=== PATIENT | male | born 1980 | race Hispanic/Latino ===

== ENCOUNTER 2021-03-01 11:05 | Emergency (ER) | payer SELFPAY ==
[2021-03-01 11:31] VITALS: BP 141/79
--- NOTE | 2021-03-01 11:35 | Emergency Department Report ---
ED General Adult HPI - General Chief complaint: Back Pain/Injury Stated complaint: NERVE PAIN IN UPPER BACK Time Seen by Provider: 03/01/21 11:32 Source: patient Mode of arrival: Ambulatory Limitations: No Limitations - History of Present Illness Initial comments: 40-year-old male patient presents with complaints of sudden onset of mid thoracic back pain with numbness on the left portion starting yesterday. He states Aleve is not helping with his symptoms. He rates his pain as a 8/10 in severity and denies any recent injuries or heavy lifting. No prior history of back injuries per patient. He also denies any chest pain, shortness of breath, cough, loss of bladder/bowel control, or difficulty with ambulation. - Related Data Previous Rx's Medication Instructions Recorded Last Taken Type Diclofenac Sodium 50 mg PO TID PRN #21 tablet. 03/01/21 Unknown Rx methocarbamoL [Methocarbamol] 750 - 1,500 mg PO TID PRN #24 03/01/21 Unknown Rx tablet Allergies Allergy/AdvReac Type Severity Reaction Status Date / Time No Known Allergies Allergy Unverified 03/01/21 11:27 ED Review of Systems ROS: Stated complaint: NERVE PAIN IN UPPER BACK Other details as noted in HPI Constitutional: denies: chills, diaphoresis, fever, malaise, weakness Respiratory: denies: cough, shortness of breath Cardiovascular: denies: chest pain Gastrointestinal: denies: abdominal pain Skin: denies: rash, lesions, change in color Neurological: numbness. denies: weakness, abnormal gait ED Past Medical Hx - Past Medical History Previous Medical History?: No - Surgical History Past Surgical History?: No - Medications Home Medications: Home Medications Medication Instructions Recorded Confirmed Last Taken Type Diclofenac Sodium 50 mg PO TID PRN #21 tablet. 03/01/21 Unknown Rx methocarbamoL [Methocarbamol] 750 - 1,500 mg PO TID PRN #24 03/01/21 Unknown Rx tablet ED Physical Exam - General Limitations: No Limitations General appearance: alert, in no apparent distress - Head Head exam: Present: atraumatic, normocephalic - Eye Eye exam: Present: normal appearance - Neck Neck exam: Present: normal inspection - Respiratory Respiratory exam: Present: normal lung sounds bilaterally. Absent: respiratory distress - Cardiovascular Cardiovascular Exam: Present: regular rate, normal rhythm - Back Exam Back exam: Present: full ROM, paraspinal tenderness (Left midthoracic), v ertebral tenderness (Midthoracic, no obvious deformity/step-offs noted) - Neurological Exam Neurological exam: Present: alert, oriented X3, normal gait. Absent: motor sensory deficit - Psychiatric Psychiatric exam: Present: normal affect, normal mood - Skin Skin exam: Present: warm, dry, intact, normal color. Absent: rash ED Course Vital Signs 03/01/21 11:29 Temperature 98.8 F Pulse Rate 83 Respiratory 20 Rate Blood Pressure 141/79 O2 Sat by Pulse 100 Oximetry ED Medical Decision Making - Radiology Data Radiology results: report reviewed XR spine thoracic 2V HISTORY: acute mid thoracic pain and numbness COMPARISON: None. TECHNIQUE: 3 view(s) of the thoracic spine obtained. FINDINGS: Vertebrae: Normal alignment. Vertebral body heights are preserved. Spondylosis:Disc space heights are preserved. IMPRESSION: 1. No acute abnormality of the thoracic spine. - Medical Decision Making 40-year-old male patient presents with complaints of sudden onset of mid thoracic back pain with numbness on the left portion starting yesterday. He states Aleve is not helping with his symptoms. He rates his pain as a 8/10 in severity and denies any recent injuries or heavy lifting. No prior history of back injuries per patient. He also denies any chest pain, shortness of breath, cough, loss of bladder/bowel control, or difficulty with ambulation. No deformities or motion of the spine noted on exam. X-ray of the thoracic spine is normal. Patient's vitals are normal, he is well-appearing, he is stable for discharge home. Will treat for muscle spasm with NSAIDs, icing, and muscle relaxers. Recommend follow-up with primary care in 3 days. Strict return precautions were discussed in detail with patient who verbalized understanding. Critical care attestation.: If time is entered above; I have spent that time in minutes in the direct care of this critically ill patient, excluding procedure time. ED Disposition Clinical Impression: Radiculopathy, thoracic region Disposition: [id number]/TX-[id number] PSY HOSP/PSY UNIT Is pt being admited?: No Condition: Stable Instructions: Radicular Pain Prescriptions: Diclofenac Sodium 50 mg PO TID PRN #21 [facility] [place] Reason: pain methocarbamoL [Methocarbamol] 750 - 1,500 mg PO TID PRN #24 tablet PRN Reason: muscle spasm/tightness Referrals: [facility] [Provider Group] - 3-5 Days Forms: Work/School Release Form(ED)
--- NOTE | 2021-03-01 12:31 | XRay Report ---
XR spine thoracic 2V HISTORY: acute mid thoracic pain and numbness COMPARISON: None. TECHNIQUE: 3 view(s) of the thoracic spine obtained. FINDINGS: Vertebrae: Normal alignment. Vertebral body heights are preserved. Spondylosis:Disc space heights are preserved. IMPRESSION: 1. No acute abnormality of the thoracic spine. Signer Name: Sid Frank MD Signed: 03/01/2021 12:26 PM Workstation Name: [id number]
[2021-03-01] MEDS ORDERED: KETOROLAC 60 MG/2 ML INJ IM ONE (13:13)
[2021-03-01] MEDS ORDERED: CYCLOBENZAPRINE 10 MG TAB PO ONE (13:14)
== END 2021-03-01 14:37 ==
LOC: ED 11:05
DX: M54.14 Radiculopathy, thoracic region (principal)
CPT/HCPCS: 72070; 96372; 99283; J1885